=== PATIENT | female | born 2000 | race Caucasian/White ===

== ENCOUNTER 2024-05-16 23:54 | Emergency (ER) | payer SELFPAY ==
[~2024-05-16] VITALS: Ht 157.5 cm; Wt 61.2 kg
[2024-05-16 23:59] VITALS: O2SAT 98
[2024-05-17] MEDS ORDERED: HYDROCODONE/APAP 5-325MG TABLET ONE (01:22)
[2024-05-17] MEDS ORDERED: IBUPROFEN 600 MG TABLET ONE (01:22)
[2024-05-17] MEDS: HYDROCODONE/APAP 5-325MG TABLET PO ONE (01:25)
[2024-05-17] MEDS: IBUPROFEN 600 MG TABLET PO ONE (01:25)
[2024-05-17] MEDS ORDERED: HYDR-4209 PO (02:28)
[2024-05-17] MEDS ORDERED: ONDA4TAB11 PO (02:28)
== END 2024-05-17 03:08 | disposition left against medical advice (07) ==
LOC: ER 05-17 00:03
DX: S93.492A Sprain of other ligament of left ankle, initial encounter (principal); S93.692A Other sprain of left foot, initial encounter; S13.8XXA Sprain of joints and ligaments of other parts of neck, initial encounter; S09.8XXA Other specified injuries of head, initial encounter; Z79.899 Other long term (current) drug therapy; Z79.891 Long term (current) use of opiate analgesic; M54.50 Low back pain, unspecified; M54.6 Pain in thoracic spine; R11.2 Nausea with vomiting, unspecified; W18.39XA Other fall on same level, initial encounter; Y93.89 Activity, other specified; Y92.89 Other specified places as the place of occurrence of the external cause; Y99.8 Other external cause status
CPT/HCPCS: 70450; 72072; 72100; 72125; 73590; 73610; 73630; A4606; A4663